=== PATIENT | male | born 1985 | race Caucasian/White ===

== ENCOUNTER 2017-12-28 11:14 | Emergency (ER) | payer OTHER ==
[2017-12-28 12:20] VITALS: BP 121/82; PULSE 80; RESP 16; TEMP 98.3
--- NOTE | 2017-12-28 12:26 | ED ---
Lower Extremity Injury HPI - General Chief Complaint: Extremity Injury, Lower Stated Complaint: LEFT FOOT INJURY Time Seen by Provider: 12/28/17 12:07 Source: patient, RN notes reviewed Mode of arrival: ambulatory Limitations: no limitations - History of Present Illness Initial Comments: This is a 32-year-old male who presents to the emergency department with chief complaint of left ankle injury. Patient states that yesterday while mowing the lawn he rolled his left ankle. He states that it rolled inward. He states that the pain is only present with movement. Denies any other injury or trauma. Denies foot pain or proximal leg pain. States that he is bearing weight and ambulating on it. Denies recent fevers or chills, chest pain or shortness of breath, abdominal pain, nausea or vomiting. - Related Data Home Medications Medication Instructions Recorded Confirmed ALPRAZolam [Xanax] 1 mg PO TID PRN 12/28/17 12/28/17 Albuterol Inhaler [Ventolin Hfa 1 - 2 puff INHALATION RT-Q6H PRN 12/28/17 Inhaler] FLUoxetine HCL [PROzac] 40 mg PO DAILY 12/28/17 12/28/17 HYDROcodone/APAP 5-325MG [[place] 1 tab PO Q6HR PRN 12/28/17 12/28/17 5-325] Levothyroxine Sodium [Synthroid] 100 mcg PO DAILY 12/28/17 12/28/17 Loratadine [Claritin] 10 mg PO DAILY 12/28/17 12/28/17 Allergies Allergy/AdvReac Type Severity Reaction Status Date / Time No Known Allergies Allergy Verified 12/28/17 12:20 Review of Systems ROS Statement: Those systems with pertinent positive or pertinent negative responses have been documented in the HPI. ROS Other: All systems not noted in ROS Statement are negative. Past Medical History Past Medical History: Thyroid Disorder Additional Past Medical History / Comment(s): back pain History of Any Multi-Drug Resistant Organisms: None Reported Past Surgical History: No Surgical Hx Reported Past Psychological History: Anxiety, Depression Smoking Status: Current every day smoker Past Alcohol Use History: Occasional Past Drug Use History: None Reported General Exam - General Exam Comments Initial Comments: General: Awake and alert, well-developed; in no apparent distress. HEENT: Head atraumatic, normocephalic. Pupils are equal, round and reactive to light. Extraocular movements intact. Oropharynx moist without erythema or exudate. Neck: Supple. Normal ROM. Cardiovascular: Regular rate and rhythm. No murmurs, rubs or gallops. Chest symmetrical. Respiratory: Lungs clear to auscultation bilaterally. No wheezes, rales or rhonchi. Normal respiratory effort with no use of accessory muscles. ants. Musculoskeletal: Normal range of motion of the left ankle. No tenderness or swelling on palpation. Pain is elicited with inversion and eversion of the left foot. Sensation is intact. Pedal pulses are 2+ equal and palpable bilaterally. Skin: [place], warm and dry without rashes or lesions. Neurological: Alert and oriented x3. CN II-XII grossly intact. Speech is fluent and answers are appropriate. No focal neuro deficits. Psychiatric: Normal mood and affect. No overt signs of depression or anxiety noted. Limitations: no limitations Course Vital Signs 12/28/17 12:15 Temperature 98.3 F Pulse Rate 80 Respiratory 16 Rate Blood Pressure 121/82 O2 Sat by Pulse 97 Oximetry Procedures - Orthopedic Splinting/Casting Injury #1 Side: left Lower Extremity Injury Location: ankle Lower Extremity Immobilizer: AirCast Medical Decision Making - Medical Decision Making This is a 32-year-old male presents to the emergency department with chief complaint of left ankle injury. Patient states he rolled his ankle yesterday. No swelling or ecchymosis noted. Pain is elicited with inversion and eversion of the left foot. X-ray was obtained and revealed no acute abnormalities. Patient has been bearing weight and ambulating. Aircast was applied and patient tolerated well without complication. He is neurovascularly intact. Patient will be provided with contact information for orthopedics to follow up if no improvement in symptoms. Recommended RICE therapy. Patient is in agreement with plan and voices understanding. He will be discharged home at this time. All questions answered. - Radiology Data Radiology results: report reviewed, image reviewed X-ray left ankle impression: No acute osseous abnormality left ankle. Disposition Clinical Impression: Ankle sprain and strain Disposition: HOME SELF-CARE Condition: Good Instructions: Ankle Sprain (ED), RICE Therapy (ED), Ankle Stirrup Splint (ED) Additional Instructions: Please follow-up with Dr. Franco, [facility], if no improvement in symptoms. Please follow up with primary care provider within 1-2 days. Return to emergency department if symptoms should worsen or any concerns arise. Is patient prescribed a controlled substance at d/c from ED?: No Referrals: Denis Ang MD [Primary Care Provider] - 1-2 days Antonio Franco MD [STAFF PHYSICIAN] - 1-2 days Time of Disposition: 13:42
--- NOTE | 2017-12-28 13:20 | XR ---
EXAMINATION TYPE: XR ankle complete LT DATE OF EXAM: 12/28/2017 COMPARISON: NONE HISTORY: Pain TECHNIQUE: 3 views left ankle FINDINGS: No acute fractures are evident. Soft tissues are normal. Ankle mortise is intact. Follow-up study can be performed 7-10 days from acute trauma for continued pain IMPRESSION: 1. No acute osseous abnormality left ankle
== END 2017-12-28 13:55 | disposition home or self-care (01) ==
LOC: EC 11:14
DX: S93.402A Sprain of unspecified ligament of left ankle, initial encounter (principal); S96.912A Strain of unspecified muscle and tendon at ankle and foot level, left foot, initial encounter; E07.9 Disorder of thyroid, unspecified; F41.9 Anxiety disorder, unspecified; F32.9 Major depressive disorder, single episode, unspecified; F17.200 Nicotine dependence, unspecified, uncomplicated; Z79.899 Other long term (current) drug therapy; X50.1XXA Overexertion from prolonged static or awkward postures, initial encounter; Y93.A6 Activity, grass drills
CPT/HCPCS: 73610; 99283; 29515; L4350

== ENCOUNTER 2024-03-29 00:53 | Emergency (ER) | payer OTHER ==
--- NOTE | 2024-03-29 13:24 | XR ---
ADDENDUM - Added by Messi Ledesma MD on 03/29/2024 4:02 AM (-04:00) PRE-REDUCTION VIEWS: Severely displaced, comminuted, intra-articular fracture of the distal radius, which is offset by 7 mm at the articular surface. EXAM: XR Left Wrist Complete, 3 or More Views CLINICAL HISTORY: PT HAS NO CLUE WHAT HAPPENED. PT STATES "THERE WAS AN EXPLOSION". NEITHER PERSON THAT IS WITH THE PT IN THE ROOM KNOWS WHAT HAPPENS EITHER. TECHNIQUE: Frontal, lateral and oblique views of the left wrist. COMPARISON: Earlier same day. FINDINGS: Bones/joints: Displaced, comminuted fracture of the LEFT distal radial metaphysis. Overlying cast is now present. Alignment remains unchanged and severely displaced. Soft tissues: Unremarkable. No radiopaque foreign body. IMPRESSION: Displaced, comminuted fracture of the LEFT distal radial metaphysis. Overlying cast is now present. Alignment remains unchanged and severely displaced.
--- NOTE | 2024-03-29 13:33 | XR ---
EXAM: XR Left Wrist, 2 Views CLINICAL HISTORY: post reduction OF THE LEFT WRIST TECHNIQUE: Frontal and lateral views of the left wrist. COMPARISON: No relevant prior studies available. FINDINGS: Bones/joints: Displaced, comminuted fracture of the LEFT distal radial metaphysis. Overlying cast is now present. Alignment remains unchanged and severely displaced. Soft tissues: Unremarkable. No radiopaque foreign body. IMPRESSION: Displaced, comminuted fracture of the LEFT distal radial metaphysis. Overlying cast is now present. Alignment remains unchanged and severely displaced.
== END 2024-03-29 05:30 | disposition home or self-care (01) ==
LOC: EC 00:53 → MERGE 00:53 → EC 05:30
CPT/HCPCS: 96374; 96375; 99283

== ENCOUNTER 2024-03-29 23:52 | Emergency (ER) | payer OTHER ==
[2024-03-29 23:55] VITALS: RESP 18
[2024-03-30] MEDS: HYDROmorphone 1 MG/ML 1 ML SYRINGE IM STA ×2 (00:13→01:11)
[2024-03-30] MEDS: KETOROLAC 15 MG/ML 1 ML VIAL IM STA (01:11)
--- NOTE | 2024-03-30 01:16 | ED ---
Upper Extremity HPI - General Chief Complaint: Recheck/Abnormal Lab/Rx Stated Complaint: Recheck Time Seen by Provider: 03/30/24 00:00 Source: patient, RN notes reviewed Mode of arrival: ambulatory Limitations: no limitations - History of Present Illness Initial Comments: This is a 38-year-old male who presents to the emergency department for left wrist pain. Patient was evaluated here yesterday for a left wrist injury and diagnosed with a fracture. Reduction was attempted but not very successful. Per orthopedics he was still able to be discharged home. He has a follow-up appointment with Dr. Mackey, orthopedics, on 04/03. He is concerned that the splint on his left arm is too tight, as it is uncomfortable. He is also taking his Alden, however this has not been effectively treating this pain. MD Complaint: Injury to:: left, wrist - Related Data Home Medications Medication Instructions Recorded Confirmed ALPRAZolam [Xanax] 1 mg PO TID PRN 12/28/17 12/28/17 Albuterol Inhaler [Ventolin Hfa 1 - 2 puff INHALATION RT-Q6H PRN 12/28/17 12/28/17 Inhaler] FLUoxetine HCL [PROzac] 40 mg PO DAILY 12/28/17 12/28/17 HYDROcodone/APAP 5-325MG [[place] 1 tab PO Q6HR PRN 12/28/17 12/28/17 5-325] Levothyroxine Sodium [Synthroid] 100 mcg PO DAILY 12/28/17 12/28/17 Loratadine [Claritin] 10 mg PO DAILY 12/28/17 12/28/17 Previous Rx's Medication Instructions Recorded Ketorolac [Toradol] 10 mg PO Q6HR PRN #15 tab 03/30/24 oxyCODONE-APAP 7.5-325MG [Percocet 1 tab PO Q4-6H PRN 3 Days #18 tab 03/30/24 7.5-325 mg] Allergies Allergy/AdvReac Type Severity Reaction Status Date / Time No Known Allergies Allergy Verified 03/29/24 23:55 Review of Systems ROS Statement: Those systems with pertinent positive or pertinent negative responses have been documented in the HPI. ROS Other: All systems not noted in ROS Statement are negative. Past Medical History Past Medical History: Thyroid Disorder Additional Past Medical History / Comment(s): back pain History of Any Multi-Drug Resistant Organisms: None Reported Past Surgical History: No Surgical Hx Reported Past Psychological History: Anxiety, Depression Smoking Status: Current every day smoker Past Alcohol Use History: Occasional Past Drug Use History: None Reported General Exam Limitations: no limitations General appearance: alert, in no apparent distress Head exam: Present: atraumatic, normocephalic, normal inspection Respiratory exam: Present: normal lung sounds bilaterally. Absent: respiratory distress, wheezes, rales, rhonchi, stridor Cardiovascular Exam: Present: regular rate, normal rhythm, normal heart sounds. Absent: systolic murmur, diastolic murmur, rubs, gallop, clicks Extremities exam: Present: other (Tenderness, swelling, and ecchymosis to the left wrist consistent with known fracture. 2+ radial pulses. No neurovascular compromise to suggest compartment syndrome.) Neurological exam: Present: alert, oriented X3, CN II-XII intact Psychiatric exam: Present: normal affect, normal mood Course Vital Signs 03/29/24 03/30/24 23:54 01:58 Temperature 98 F 98.0 F Pulse Rate 93 74 Respiratory 18 18 Rate Blood Pressure 162/106 137/90 O2 Sat by Pulse 96 98 Oximetry Procedures - Orthopedic Splinting/Casting Injury #1 Side: left Upper Extremity Injury Location: wrist Upper Extremity Immobilizer: sugar tong splint Medical Decision Making - Medical Decision Making This is a 38-year-old male who presents to the emergency for left wrist pain and swelling and requesting his splint be evaluated. Was pt. sent in by a medical professional or institution? @ -No Did you speak to anyone other than the patient for history? @ -No Did you review nursing and triage notes? @ -Yes, and I agree, it is accurate with regards to the patient's symptoms. Were old charts reviewed? @ -X-ray of the left wrist obtained yesterday demonstrating a distal radius fracture. Differential Diagnosis? @ -Differential Musculoskeletal: Muscular strain, contusion, ligament sprain, fracture, arthritis, septic arthritis, bursitis, cellulitis, muscle spasm, nerve compression, DVT, arterial occlusion, herpes zoster, electrolyte abnormality, tumor.... This is not meant to be in all inclusive list EKG interpreted by me (3pts min.)? @ -Not obtained X-rays interpreted by me (1pt min.)? @ -Not obtained CT interpreted by me (1pt min.)? @ -Not obtained U/S interpreted by me (1pt. min.)? @ -Not obtained What testing was considered but not performed? (CT, X-rays, U/S, labs)? Why? @ -None What meds were considered but not given? Why? @ -None Did you discuss the management of the patient with other professionals? @ -No Did you reconcile home meds? @ -No Was smoking cessation discussed for >3mins.? @ -No Was critical care preformed (if so, how long)? @ -No Were there social determinants of health that impacted care today? How? (Homelessness, low income, unemployed, alcoholism, drug addiction, transportation, low edu. Level, literacy, decrease access to med. care, fci, rehab)? @ -No Was there de-escalation of care discussed even if they declined? (Discuss DNR or withdrawal of care, Hospice)? @ -No What co-morbidities impacted this encounter? (DM, HTN, Smoking, COPD, CAD, Cancer, CVA, Hep., AIDS, mental health diagnosis, sleep apnea, morbid obesity)? @ -None Was patient admitted / discharged? @ -Discharged. Patient did not have any signs of compartment syndrome on exam. His splint was removed and replaced with one that was slightly larger and the [place] bandage was not applied as tight. Patient states that this was much more comfortable. Given that he is somewhat opioid tolerant due to taking Alden regularly, this has not been effective. Advised that we can try something stronger and he was given a prescription for a 3-day course of Percocet. Note was sent to the pharmacy explaining that this is a temporary replacement for the Alden due to acute injury. He was also given a prescription for Toradol. He will otherwise follow-up with orthopedics as scheduled on 04/03. Case discussed with ED attending Dr. Bhagat. Return precautions reviewed in depth, the patient is instructed to return to the emergency department with any new, worsening, or concerning symptoms. Patient verbalized understanding. Undiagnosed new problem with uncertain prognosis? @ -None Drug Therapy requiring intensive monitoring for toxicity (Heparin, Nitro, I nsulin, Cardizem)? @ -None Were any procedures done? @ -Sugar tong splint application Diagnosis/symptom? @ -Left distal radius fracture Acute, or Chronic, or Acute on Chronic? @ -Acute Uncomplicated (without systemic symptoms) or Complicated (systemic symptoms)? @ -Uncomplicated Side effects of treatment? @ -None Exacerbation, Progression, or Severe Exacerbation] @ -Not applicable Poses a threat to life or bodily function? @ -Yes, this is limiting his use of the left arm Disposition Clinical Impression: Fracture of left distal radius Disposition: HOME SELF-CARE Instructions (If sedation given, give patient instructions): Wrist Fracture in Adults (ED), Splint Care (ED) Additional Instructions: Return to the emergency department with any new, worsening, or concerning symptoms. Take the Toradol with Tylenol as needed for pain relief. If you choose to take the Toradol, do not take any other anti-inflammatories such as ibuprofen, take one or the other. Try taking the Percocet in place of the Alden, up to every 4-6 hours to see if that is more effective for your pain. F ollow up with orthopedics as scheduled. Prescriptions: oxyCODONE-APAP 7.5-325MG [Percocet 7.5-325 mg] 1 tab PO Q4-6H PRN 3 Days #18 tab PRN Reason: Pain Ketorolac [Toradol] 10 mg PO Q6HR PRN #15 tab PRN Reason: Pain Is patient prescribed a controlled substance at d/c from ED?: Yes When asked, does pt state using other controlled substances?: Yes If prescribed controlled substance>3 days was MAPS reviewed?: Prescribed <3 Days Referrals: Radha Ang DO [Primary Care Provider] - 1-2 days
[2024-03-30] MEDS: oxyCODONE-APAP 10-325MG 1 EACH TAB PO STA (01:47)
[2024-03-30 02:03] VITALS: BP 137/90; PULSE 74; TEMP 98
== END 2024-03-30 02:03 | disposition home or self-care (01) ==
LOC: EC 23:52
CPT/HCPCS: 29125; 96372; 99283